=== PATIENT | female | born 1990 | race Caucasian/White ===

== ENCOUNTER → 2021-03-03 13:53 | Outpatient (BNVA) | payer OTHER, SELFPAY | PROVIDERS: Visit Provider Obstetrics & Gynecology | DX: Z34.90 Encounter for supervision of normal pregnancy, unspecified, unspecified trimester (principal); Z3A.00 Weeks of gestation of pregnancy not specified | CPT/HCPCS: 99212 ==

== ENCOUNTER 2021-03-07 13:09 | Outpatient (REF) | payer OTHER, SELFPAY ==
--- NOTE | ~2021-03-07 | US_ITS ---
EXAMINATION: US OBSTETRICAL ULTRASOUND CLINICAL INFORMATION: Severe back pain and nausea. Check viability. COMPARISON: None. LMP: 01/17/2021. Gestational age by maternal dates is 7 weeks 0 days. Estimated date of delivery by maternal dates is 11/09/2021. TECHNIQUE: Transabdominal first trimester OB ultrasound FINDINGS: There is a single intrauterine gestational sac with visible yolk sac, embryo/fetus, and cardiac activity. There is no significant subchorionic hemorrhage or hematoma. HR: 120 beats per minute. CRL (crown rump length): 0.67 cm (6 weeks 4 days +/- 4 days). THU (estimated date of delivery): 10/27/2021 +/- 4 days. MATERNAL ADNEXA: The right maternal ovary measures 2.3 x 2.7 x 2 cm. The left maternal ovary measures 3.1 x 2.2 x 2 cm. There is no significant maternal adnexal mass. No maternal pelvic ascites. US/US OB <= 14 weeks fetus IMPRESSION: 1. Single intrauterine gestation with ultrasound gestational age of 6 weeks 4 days +/- 4 days. 2. Estimated date of delivery is 10/27/2021 +/- 4 days.
== END 2021-03-07 13:10 | disposition home or self-care (01) ==
LOC: HO.US 13:09
PROVIDERS: Visit Provider Obstetrics & Gynecology
DX: O26.891 Other specified pregnancy related conditions, first trimester (principal); M54.9 Dorsalgia, unspecified; R11.0 Nausea; Z3A.01 Less than 8 weeks gestation of pregnancy
CPT/HCPCS: 76801

== ENCOUNTER → 2021-03-22 13:25 | Outpatient (BNVA) | payer OTHER, SELFPAY | PROVIDERS: Visit Provider Obstetrics & Gynecology ==

== ENCOUNTER → 2021-03-30 13:59 | Outpatient (BNVA) | payer OTHER, SELFPAY | PROVIDERS: Visit Provider Obstetrics & Gynecology | DX: Z34.91 Encounter for supervision of normal pregnancy, unspecified, first trimester (principal); Z3A.10 10 weeks gestation of pregnancy | CPT/HCPCS: 99212 ==

== ENCOUNTER 2021-03-30 14:50 | Emergency (ER) | payer OTHER, SELFPAY ==
[2021-03-30 15:33] VITALS: BP 111/69; PULSE 70; RESP 18; TEMP 36.8; O2SAT 98; BMI 20.7
[2021-03-30 15:57] LABS: Glucose Urine UA NEG (NEG); Leukocyte Esterase Urine NEG (NEG); Nitrite Urine NEG (NEG); Specific Gravity - Urine 1.025 (1.005-1.025); Urine Blood NEG (NEG); Urine Ketones NEG (NEG); Urine Protein NEG (NEG-TRACE)
[2021-03-30 16:08] LABS: Appearance Urine CLEAR; Color Urine YELLOW
== END 2021-03-30 21:04 | disposition left against medical advice (07) ==
PROVIDERS: Emergency Provider Emergency Medicine; PCP Internal Medicine
DX: O21.9 Vomiting of pregnancy, unspecified (principal); Z3A.00 Weeks of gestation of pregnancy not specified
CPT/HCPCS: 81003; 99282; 99283

== ENCOUNTER 2021-04-07 13:27 | Outpatient (REF) | payer OTHER, SELFPAY ==
--- NOTE | ~2021-04-07 | US_ITS ---
EXAMINATION: OBSTETRICAL ULTRASOUND, FIRST TRIMESTER HISTORY: 30-year-old at 11.3 weeks of gestation NT screening COMPARISON: 03/07/2021 TECHNIQUE: Real time transabdominal imaging with color and M-mode Doppler. FINDINGS: A single, live IUP CRL of 46.2 mm c/w 11.3wks is noted. Heart Rate: 160 beats per minute. Normal yolk sac seen. NT was 1.0.mm. NB Present The embryo appears sonographically wnl for this GA. Small fibroid: 1.1 x 0.9 x 1.0 cm. Both maternal ovaries are seen and appear normal. GESTATIONAL AGE: 1. Established GA: 11.3 wks 2. GA from [facility]: 11.3 wks ESTIMATED DATE OF DELIVERY: 1. Established THU: 10/24/2021 2. THU from [facility]: 10/24/2021 US/US OB 1T nuc measure IMPRESSION: 1. A single live IUP 2. Size equals dates 3. NT of 1.0 mm MFM Consultation: I reviewed the ultrasound findings along with significance of NT measurement. The NT of less than 3mm is generally reassuring. However, the sensitivity for T21 detection is only 60%. I reviewed the availability of serum aneuploidy screening which includes cell-free DNA and placental protein based tests. I discussed the sensitivity, false-positive rate, and other limitations associated with each test. I also reviewed the availability of invasive diagnostic tests that are associated small but definite risk of miscarriage. We also reviewed the differences between screening tests and diagnostic tests. After our discussion, she opted for the First trimester screening that is based on cell-free DNA or non-invasive testing (NIPT). The result will be faxed to your office in approximately 7 days. A follow up at 18 weeks for survey has been scheduled. Thank you very much for this referral. Total time 20 minutes. The time spent was devoted to counseling the patient about the disease and diagnosis, coordinating care including reviewing her records, pertinent lab data and studies, as well as discussing diagnostic evaluation and workup, plan therapeutic interventions and future disposition of care. This includes any additional research needed to obtain further information in formulating the plan of care of this patient. This note was generated with a voice recognition program. Please excuse any errors which may have been overlooked during my review of this note. Sometimes these errors may affect the content or meaning of a given sentence.
== END 2021-04-07 13:28 | disposition home or self-care (01) ==
LOC: HO.US 13:27
PROVIDERS: Visit Provider Obstetrics & Gynecology
DX: Z34.91 Encounter for supervision of normal pregnancy, unspecified, first trimester (principal); Z36.82 Encounter for antenatal screening for nuchal translucency; Z3A.11 11 weeks gestation of pregnancy
CPT/HCPCS: 76813

== ENCOUNTER 2021-04-10 12:40 | Outpatient (REF) | payer OTHER, SELFPAY ==
[2021-04-10 13:43] LABS: Hematocrit 35.4 % (37-47); Hemoglobin 11.9 g/dl (12.0-16.0); Mean Corpuscular HGB Conc 33.6 g/dl (31.0-35.0); Mean Corpuscular Volume 86.3 fL (80-98); Mean Platelet Volume 8.9 fL (9.4-12.3); Platelet Count 330 X10*3/uL (160-400); Red Cell Distribution Width 12.2 % (11.0-16.0); White Blood Count 7.4 X10*3/uL (4.8-10.8)
[2021-04-10 14:25] LABS: Syphilis Screen Nonreactive (Nonreactive)
[2021-04-10 15:12] LABS: Amphetamine Screen Urine Not Detected (Not Detect); Barbiturates, Urine Not Detected (Not Detect); Benzodiazepines Screen Urine Not Detected (Not Detect); Cannabinoid Screen Urine Not Detected (Not Detect); Cocaine Screen Urine Not Detected (Not Detect); Opiate Screen Urine Not Detected (Not Detect); Phencyclidine Screen Urine Not Detected (Not Detect)
[2021-04-11 08:51] LABS: Rubella IgG Antibody 5.89 Index
[2021-04-11 09:16] LABS: HBsAGNum1 0.24 S/CO (0.00-0.99); Hepatitis B Surface Antigen Negative (Negative)
[2021-04-11 10:23] LABS: ~HepC Num1 0.05 S/CO (0.00-0.79); ~Hepatitis C Antibody Nonreactive (Nonreactive)
[2021-04-11 10:29] LABS: HIV AB/AG Nonreactive (Nonreactive); HIV Num 1 0.12 S/CO (0.00-0.99)
[2021-04-11 14:07] LABS: Hematocrit 34.1 % (35.0-45.0); MCH 30.5 pg (27.0-33.0); MCV 86.5 fL (80.0-100.0); RBC 3.94 Million/uL (3.80-5.10); RDW 12.8 % (11.0-15.0)
== END 2021-04-10 12:41 | disposition home or self-care (01) ==
LOC: HO.LAB 12:40
PROVIDERS: PCP Internal Medicine; Visit Provider Obstetrics & Gynecology
DX: Z34.90 Encounter for supervision of normal pregnancy, unspecified, unspecified trimester (principal)
CPT/HCPCS: 80307; 83020; 85014; 85018; 85027; 85041; 86762; 86780; 86787; 86803; 86850; 86900; 86901; 87086; 87340; 87389

== ENCOUNTER → 2021-04-13 14:59 | Outpatient (BNVA) | payer OTHER, SELFPAY | PROVIDERS: PCP Internal Medicine; Visit Provider Advanced Practice Midwife | DX: O23.41 Unspecified infection of urinary tract in pregnancy, first trimester (principal); O21.0 Mild hyperemesis gravidarum; Z3A.12 12 weeks gestation of pregnancy | CPT/HCPCS: 81003; 99212 ==

== ENCOUNTER → 2021-05-11 13:03 | Outpatient (BNVA) | payer OTHER, SELFPAY | PROVIDERS: PCP Internal Medicine; Visit Provider Advanced Practice Midwife | DX: O21.0 Mild hyperemesis gravidarum (principal); O23.42 Unspecified infection of urinary tract in pregnancy, second trimester; B96.89 Other specified bacterial agents as the cause of diseases classified elsewhere; Z3A.16 16 weeks gestation of pregnancy | CPT/HCPCS: 99212 ==

== ENCOUNTER 2021-05-26 11:09 | Outpatient (REF) | payer OTHER, SELFPAY ==
--- NOTE | ~2021-05-26 | US_ITS ---
EXAMINATION: US OBSTETRICAL CLINICAL INFORMATION: A 30-year-old at 18.3 weeks of gestation Screening for anomaly COMPARISON: 04/07/2021 TECHNIQUE: Real-time transabdominal ultrasound was performed using C1-5 megahertz transducer. FINDINGS: A single, active, fetus is seen in vertex presentation. The placenta is anterior without previa, and the amniotic fluid volume is wnl. MEASUREMENTS: 1. Biparietal Diameter: 4.1 cm; 18.4 wks 2. Occipital Frontal Diameter: 5.5 cm 3. Head Circumference: 15.4 cm; 18.3 wks 4. Abdominal Circumference: 13.3 cm; 18.6 wks 5. Femur Length: 2.7 cm; 18.1 wks 6. Humerus Length: 2.6 cm; 18.0 wks 7. Tibia Length: 2.3 cm; 18.1 wks 8. Ulna Length: 2.4 cm; 18.3 wks 9. Lateral ventricle: 0.65 cm 10. Cerebellum: 1.74 cm; 18.2 wks 11. Cisterna Magna: 0.3 cm 12. Nuchal Fold: 3.8 mm 13. Heart Rate: 134 beats per minute Rt ovary: normal Lt ovary: normal Cervical length 3.3 cm on T/A. GESTATIONAL AGE: 1. Established GA: 18.3 wks 2. GA from [facility]: 18.4 wks ESTIMATED DATE OF DELIVERY: 1. Established THU: 10/24/2021 2. THU from [facility]: 10/23/2021 ANATOMY: The visualized anatomy includes but not limited to: 1. Cranium: Normal 2. Intracranial anatomy: cavum septum pellucidi, lateral ventricles, choroid plexus, cerebellum, posterior fossa, third and fourth ventricles. 3. face: orbits, lip/palate, profile, nasal bone 4. Heart: four-chamber view of the heart, ventricular septum, foramen ovale, pulmonary vein, left and right outflow tracts, three-vessel view, 3 vessel trachea view, aortic and ductal arches, situs.. 5. Diaphragm: Normal 6. Abdominal wall: Normal 7. Cord Insertion: Normal 8. Spine: Cervical, thoracic, lumbar, sacral. 9. Stomach: Normal size and shape 10. Right Kidney: Normal 11. Left Kidney: Normal 12. 3 vessel cord: Normal 13. Upper extremity: Open hands, fifth digit. 14. Lower extremity: Tibia, fibula, bilateral feet. 15. Bladder: Normal 16. Genitalia: Female, patient aware US/US OB /maternal detail IMPRESSION: 1. Single, living, intrauterine with appropriate biometry. 2. Normal survey DISCUSSION: I reviewed today's ultrasound findings. We discussed the limitations of ultrasound in diagnosing aneuploidy and other congenital abnormalities. I reviewed the differences between screening test and diagnostic test. Amniocentesis was discussed and declined. She was informed that the baseline incidence of congenital abnormalities is approximately 3-5%. Not all these conditions are diagnosable in utero. RECOMMENDATIONS: 1. Follow-up when necessary Thank you for allowing me to participate in her care. Total time 20 minutes. The time spent was devoted to counseling the patient about the disease and diagnosis, coordinating care including reviewing her records, pertinent lab data and studies, as well as discussing diagnostic evaluation and workup, plan therapeutic interventions and future disposition of care. This includes any additional research needed to obtain further information in formulating the plan of care of this patient. This note was generated with a voice recognition program. Please excuse any errors which may have been overlooked during my review of this note. Sometimes these errors may affect the content or meaning of a given sentence.
== END 2021-05-26 11:10 | disposition home or self-care (01) ==
LOC: HO.US 11:09
PROVIDERS: PCP Internal Medicine; Visit Provider Advanced Practice Midwife
DX: Z36.3 Encounter for antenatal screening for malformations (principal); Z34.92 Encounter for supervision of normal pregnancy, unspecified, second trimester
CPT/HCPCS: 76811

== ENCOUNTER 2021-06-19 10:56 | Outpatient (REF) | payer OTHER, SELFPAY ==
[2021-06-20 01:02] LABS: CT PCR NOT DETECTED (Not Detect.)
[2021-06-20 01:03] LABS: NG PCR NOT DETECTED (Not Detect.)
[2021-06-20 08:37] LABS: BV Int Neg Control Negative (Negative); BV Int Pos Control Positive (Positive)
[2021-06-29 11:12] LABS: HPV mRNA E6/E7 rflx Not Detected (Not Detected)
== END 2021-06-19 10:57 | disposition home or self-care (01) ==
LOC: HO.LAB 10:56
PROVIDERS: PCP Internal Medicine; Visit Provider Advanced Practice Midwife
DX: Z34.92 Encounter for supervision of normal pregnancy, unspecified, second trimester (principal); Z3A.21 21 weeks gestation of pregnancy
CPT/HCPCS: 81003; 87480; 87491; 87510; 87591; 87624; 87660; 88142; 99212

== ENCOUNTER → 2021-07-17 13:30 | Outpatient (BNVA) | payer OTHER, SELFPAY | PROVIDERS: PCP Internal Medicine; Visit Provider Advanced Practice Midwife | DX: Z34.82 Encounter for supervision of other normal pregnancy, second trimester (principal); Z3A.25 25 weeks gestation of pregnancy | CPT/HCPCS: 99212 ==

== ENCOUNTER → 2021-08-16 09:31 | Outpatient (BNVA) | payer OTHER, SELFPAY | PROVIDERS: Visit Provider Advanced Practice Midwife | DX: Z34.03 Encounter for supervision of normal first pregnancy, third trimester (principal); Z3A.30 30 weeks gestation of pregnancy | CPT/HCPCS: 81003; 99212 ==

== ENCOUNTER 2021-08-17 10:46 | Outpatient (REF) | payer OTHER, SELFPAY ==
[2021-08-17 11:42] LABS: Appearance Urine CLEAR; Color Urine YELLOW; Glucose Urine UA NEG (NEG); Leukocyte Esterase Urine NEG (NEG); Nitrite Urine NEG (NEG); Specific Gravity - Urine 1.015 (1.005-1.025); Urine Blood NEG (NEG); Urine Ketones NEG (NEG); Urine Protein TRACE MG/DL (NEG-TRACE)
[2021-08-17 12:20] LABS: Hematocrit 29.1 % (37-47); Hemoglobin 9.8 g/dl (12.0-16.0); Mean Corpuscular HGB Conc 33.7 g/dl (31.0-35.0); Mean Corpuscular Hemoglobin 29.2 pg (27.0-33.0); Mean Corpuscular Volume 86.6 fL (80-98); Mean Platelet Volume 9.2 fL (9.4-12.3); Platelet Count 280 X10*3/uL (160-400); Red Blood Count 3.36 X10*6/uL (4.20-5.50); Red Cell Distribution Width 12.5 % (11.0-16.0); White Blood Count 9.6 X10*3/uL (4.8-10.8)
[2021-08-17 12:39] LABS: Glucose 1 Hour PP 50gm Dose 91 mg/dL (60-140)
[2021-08-18 06:51] LABS: Syphilis Screen Nonreactive (Nonreactive)
== END 2021-08-17 10:47 | disposition home or self-care (01) ==
LOC: HO.LAB 10:46
PROVIDERS: Obstetrics & Gynecology; PCP Internal Medicine; Visit Provider Advanced Practice Midwife
DX: O26.893 Other specified pregnancy related conditions, third trimester (principal); N39.0 Urinary tract infection, site not specified
CPT/HCPCS: 36415; 81003; 85027; 86780; 87086

== ENCOUNTER 2021-08-31 08:54 | Outpatient (REF) | payer OTHER, SELFPAY | END 2021-08-31 08:55 | disposition home or self-care (01) | LOC: HO.LAB 08:54 | PROVIDERS: PCP Internal Medicine; Visit Provider Advanced Practice Midwife | DX: O26.843 Uterine size-date discrepancy, third trimester (principal); Z3A.32 32 weeks gestation of pregnancy | CPT/HCPCS: 81003; 87086; 99212 ==

== ENCOUNTER 2021-09-01 13:06 | Outpatient (REF) | payer OTHER, SELFPAY ==
--- NOTE | ~2021-09-01 | US_ITS ---
EXAMINATION: OBSTETRICAL ULTRASOUND, Follow up HISTORY: 30-year-old at the 32.3 weeks of gestation Size date discrepancy COMPARISON: 05/26/2021 TECHNIQUE: Real time transabdominal imaging with color and M-mode Doppler. PRESENTATION: Vertex PLACENTA LOCATION: Anterior without previa AMNIOTIC FLUID: GEORGE 6.5 cm, MVP 4.2 cm MEASUREMENTS: 1. Biparietal Diameter: 7.9 cm; 31.5 wks 2. Head Circumference: 29.6 cm; 32.5 wks 3. Abdominal Circumference: 25.4 cm; 29.4 wks 4. Femur Length: 5.8 cm; 30.4 wks 5. Heart Rate: 127 beats per minute WEIGHT: EFW: 1547 grams (3 lbs 4 oz) -- 3 %. BIOPHYSICAL PROFILE: Motion: 2 Tone: 2 Breathin Amniotic Fluid: 2 Total score: 8/8 UA Doppler: S/D 3.8 GESTATIONAL AGE: 1. Established GA: 32.3 wks 2. GA from [facility]: 31.1 wks ESTIMATED DATE OF DELIVERY: 1. Established THU: 10/24/2021 2. THU from [facility]: 11/02/2021 US/US OB follow up IMPRESSION: 1. A single active fetus is in vertex presentation 2. Size less than dates, EFW corresponds to 3th percentile 3. Reassuring biophysical profile 4. GEORGE is low normal but the maximum vertical pocket is within normal limits 5. Normal SD ratio in the umbilical artery. I reviewed today's ultrasound findings and discussed the limitations of ultrasound and estimating weights. We discussed the fact that majority of the fetuses whose EFW falls below 10th percentile are constitutionally small but otherwise healthy fetuses growing to their full genetic potential. Approximately 25% of these fetuses may be experiencing placental insufficiency and are not growing to their full genetic potential. Often it is difficult to distinguish the 2 in utero. Given that the EFW corresponds to 3rd %ile, I recommend the administering a course of betamethasone and NST today. We'll can continue the expectant management with the NST 2 times per week, weekly BPP and UA Doppler along with serial interval growth every 2 weeks. Thank you very much for this referral. Total time 40 minutes. The time spent was devoted to counseling the patient about the disease and diagnosis, coordinating care including reviewing her records, pertinent lab data and studies, as well as discussing diagnostic evaluation and workup, plan therapeutic interventions and future disposition of care. This includes any additional research needed to obtain further information in formulating the plan of care of this patient. This note was generated with a voice recognition program. Please excuse any errors which may have been overlooked during my review of this note. Sometimes these errors may affect the content or meaning of a given sentence.
--- NOTE | ~2021-09-01 | US_ITS ---
EXAMINATION: OBSTETRICAL ULTRASOUND, Follow up HISTORY: 30-year-old at the 32.3 weeks of gestation Size date discrepancy COMPARISON: 05/26/2021 TECHNIQUE: Real time transabdominal imaging with color and M-mode Doppler. PRESENTATION: Vertex PLACENTA LOCATION: Anterior without previa AMNIOTIC FLUID: GEORGE 6.5 cm, MVP 4.2 cm MEASUREMENTS: 1. Biparietal Diameter: 7.9 cm; 31.5 wks 2. Head Circumference: 29.6 cm; 32.5 wks 3. Abdominal Circumference: 25.4 cm; 29.4 wks 4. Femur Length: 5.8 cm; 30.4 wks 5. Heart Rate: 127 beats per minute WEIGHT: EFW: 1547 grams (3 lbs 4 oz) -- 3 %. BIOPHYSICAL PROFILE: Motion: 2 Tone: 2 Breathin Amniotic Fluid: 2 Total score: 8/8 UA Doppler: S/D 3.8 GESTATIONAL AGE: 1. Established GA: 32.3 wks 2. GA from [facility]: 31.1 wks ESTIMATED DATE OF DELIVERY: 1. Established THU: 10/24/2021 2. THU from [facility]: 11/02/2021 US/US OB velocimetry umbilical ar IMPRESSION: 1. A single active fetus is in vertex presentation 2. Size less than dates, EFW corresponds to 3th percentile 3. Reassuring biophysical profile 4. GEORGE is low normal but the maximum vertical pocket is within normal limits 5. Normal SD ratio in the umbilical artery. I reviewed today's ultrasound findings and discussed the limitations of ultrasound and estimating weights. We discussed the fact that majority of the fetuses whose EFW falls below 10th percentile are constitutionally small but otherwise healthy fetuses growing to their full genetic potential. Approximately 25% of these fetuses may be experiencing placental insufficiency and are not growing to their full genetic potential. Often it is difficult to distinguish the 2 in utero. Given that the EFW corresponds to 3rd %ile, I recommend the administering a course of betamethasone and NST today. We'll can continue the expectant management with the NST 2 times per week, weekly BPP and UA Doppler along with serial interval growth every 2 weeks. Thank you very much for this referral. Total time 40 minutes. The time spent was devoted to counseling the patient about the disease and diagnosis, coordinating care including reviewing her records, pertinent lab data and studies, as well as discussing diagnostic evaluation and workup, plan therapeutic interventions and future disposition of care. This includes any additional research needed to obtain further information in formulating the plan of care of this patient. This note was generated with a voice recognition program. Please excuse any errors which may have been overlooked during my review of this note. Sometimes these errors may affect the content or meaning of a given sentence.
== END 2021-09-01 13:07 | disposition home or self-care (01) ==
LOC: HO.US 13:06
PROVIDERS: PCP Internal Medicine; Visit Provider Advanced Practice Midwife
DX: O26.843 Uterine size-date discrepancy, third trimester (principal); Z3A.32 32 weeks gestation of pregnancy
CPT/HCPCS: 76816; 76820; 99212

== ENCOUNTER → 2021-09-05 13:56 | Outpatient (BNVA) | payer OTHER, SELFPAY | PROVIDERS: PCP Internal Medicine; Visit Provider Obstetrics & Gynecology | DX: O36.5930 Maternal care for other known or suspected poor fetal growth, third trimester, not applicable or unspecified (principal); Z3A.33 33 weeks gestation of pregnancy | CPT/HCPCS: 59025; 99212 ==

== ENCOUNTER 2021-09-08 13:56 | Outpatient (REF) | payer OTHER, SELFPAY ==
--- NOTE | ~2021-09-08 | US_ITS ---
EXAMINATION: US OBSTETRICAL (BIOPHYSICAL PROFILE) CLINICAL INFORMATION: 30-year-old at 33.3 weeks of gestation IUGR COMPARISON: 09/01/2021 TECHNIQUE: Biophysical profile is performed over 30 minutes with assessment of breathing, gross body movement, tone, and qualitative amniotic fluid volume. Pulse wave and color Doppler evaluation of the umbilical cord was performed. FINDINGS: POSITION: Cephalic PLACENTA: Anterior without previa AMNIOTIC FLUID INDEX: 7.3 cm CARDIAC ACTIVITY: 132 beats per minute BIOPHYSICAL PROFILE: Motion: 2 Tone: 2 Breathin Amniotic Fluid: 2 The total biophysical score is 8/8 UA Doppler: S/D 3.1 US/US OB biophysical profile IMPRESSION: 1. Single intrauterine gestation in vertex position. 2. Reassuring BPP and GEORGE 3. Normal SD ratio in the umbilical artery Continue weekly testing. Interval growth next week (scheduled). Thank you for allowing me to participate in her care. This note was generated with a voice recognition program. Please excuse any errors which may have been overlooked during my review of this note. Sometimes these errors may affect the content or meaning of a given sentence.
--- NOTE | ~2021-09-08 | US_ITS ---
EXAMINATION: US OBSTETRICAL (BIOPHYSICAL PROFILE) CLINICAL INFORMATION: 30-year-old at 33.3 weeks of gestation IUGR COMPARISON: 09/01/2021 TECHNIQUE: Biophysical profile is performed over 30 minutes with assessment of breathing, gross body movement, tone, and qualitative amniotic fluid volume. Pulse wave and color Doppler evaluation of the umbilical cord was performed. FINDINGS: POSITION: Cephalic PLACENTA: Anterior without previa AMNIOTIC FLUID INDEX: 7.3 cm CARDIAC ACTIVITY: 132 beats per minute BIOPHYSICAL PROFILE: Motion: 2 Tone: 2 Breathin Amniotic Fluid: 2 The total biophysical score is 8/8 UA Doppler: S/D 3.1 US/US OB velocimetry umbilical ar IMPRESSION: 1. Single intrauterine gestation in vertex position. 2. Reassuring BPP and GEORGE 3. Normal SD ratio in the umbilical artery Continue weekly testing. Interval growth next week (scheduled). Thank you for allowing me to participate in her care. This note was generated with a voice recognition program. Please excuse any errors which may have been overlooked during my review of this note. Sometimes these errors may affect the content or meaning of a given sentence.
== END 2021-09-08 13:57 | disposition home or self-care (01) ==
LOC: HO.US 13:56
PROVIDERS: PCP Internal Medicine; Visit Provider Advanced Practice Midwife
DX: O26.843 Uterine size-date discrepancy, third trimester (principal); O36.5930 Maternal care for other known or suspected poor fetal growth, third trimester, not applicable or unspecified; Z3A.33 33 weeks gestation of pregnancy
CPT/HCPCS: 76819; 76820